=== PATIENT | female | born 2000 | race African-American/Black ===

== ENCOUNTER 2023-12-24 16:57 | Emergency (ER) | payer OTHER | END 2023-12-24 19:22 | disposition home or self-care (01) | LOC: CSHERS 16:57 | DX: S13.4XXA Sprain of ligaments of cervical spine, initial encounter (principal); S09.90XA Unspecified injury of head, initial encounter; V89.2XXA Person injured in unspecified motor-vehicle accident, traffic, initial encounter | CPT/HCPCS: 70450; 72100; 72125 ==